=== PATIENT | male | born 1990 | race African-American/Black ===

== ENCOUNTER 2022-04-13 17:46 | Emergency (ER) | payer SELFPAY | END 2022-04-13 21:40 | disposition left against medical advice (07) | LOC: MADERS 17:46 | DX: Z53.21 Procedure and treatment not carried out due to patient leaving prior to being seen by health care provider (principal) | CPT/HCPCS: 87081; 87430; 87804 ==

== ENCOUNTER 2022-04-14 14:16 | Emergency (ER) | payer SELFPAY ==
[2022-04-14] MEDS ORDERED: Dexamethasone 10 MG/ML VIAL ONE (14:59)
== END 2022-04-14 15:15 | disposition home or self-care (01) ==
LOC: MADERS 14:16
DX: J06.9 Acute upper respiratory infection, unspecified (principal); F17.210 Nicotine dependence, cigarettes, uncomplicated; Z20.822 Contact with and (suspected) exposure to COVID-19
CPT/HCPCS: 71045; 96372; J1100; U0003; U0005

== ENCOUNTER 2022-07-22 12:01 | Emergency (ER) | payer OTHER, SELFPAY ==
[2022-07-22] MEDS ORDERED: Ibuprofen 800 MG TAB ONE (12:29)
== END 2022-07-22 12:36 | disposition home or self-care (01) ==
LOC: MADERS 12:01
DX: S46.811A Strain of other muscles, fascia and tendons at shoulder and upper arm level, right arm, initial encounter (principal); F17.210 Nicotine dependence, cigarettes, uncomplicated; X50.1XXA Overexertion from prolonged static or awkward postures, initial encounter
CPT/HCPCS: 99282

== ENCOUNTER 2023-04-17 05:36 | Emergency (ER) | payer SELFPAY ==
[2023-04-17] MEDS ORDERED: Amoxicillin/Potassium Clav 875 MG TAB ONE (06:08)
[2023-04-17] MEDS ORDERED: Ibuprofen 800 MG TAB ONE (06:08)
== END 2023-04-17 06:17 | disposition home or self-care (01) ==
LOC: MADERS 05:36
DX: K04.7 Periapical abscess without sinus (principal)
CPT/HCPCS: 99282